=== PATIENT | female | born 1940 | race Caucasian/White ===

== ENCOUNTER → 2021-06-23 09:50 | Outpatient (POV) | payer MEDICARE, SELFPAY ==
[2021-06-23 10:15] VITALS: BP 121/86; PULSE 88; RESP 18; O2SAT 95; BMI 28.0
--- NOTE | 2021-06-23 12:21 | HMH.PMCON ---
Assessment and Plan (1) Degenerative joint disease (DJD) of lumbar spine Status: Chronic Category: Medical Code(s): M47.816 - Spondylosis without myelopathy or radiculopathy, lumbar region (2) Lumbar radiculopathy Status: Chronic Category: Medical Code(s): M54.16 - Radiculopathy, lumbar region (3) Spinal stenosis Status: Chronic Category: Medical Code(s): M48.00 - Spinal stenosis, site unspecified (4) Neurogenic claudication Status: Chronic Category: Medical Code(s): M48.062 - Spinal stenosis, lumbar region with neurogenic claudication - Assessment and plan all Dx Assessment and Plan for all problems:: Patient did undergo updated imaging. She does have significant spinal stenosis per her report. Patient is exhibiting neurogenic claudication type symptoms. Plan per Dr. Fried is for the patient to try injective therapy. If she does not get relief we did suggest the patient proceed with an extension of fusion if specific level can be addressed otherwise the patient would need to continue with pain management treatment. Today, the patient and I did discuss undergoing a lumbar epidural steroid injection at L4-L5 area. Per MRI report?L4-L5 area broad base disc bulge/protrusion with severe right and moderate left foraminal stenosis. Patient would like to proceed. She is on Plavix therapy prescribed by Dr. Han. We will seek approval to hold her anticoagulation therapy for the injection. If the patient does not get significant relief, she and I did discuss possible implanted devices as an option for long-term treatment. Patient is unsure that she wants to proceed with another neurosurgical procedure. These options may be a great option for her. She was given educational information for both the intrathecal pump and the spinal cord stimulator. We will follow-up with the patient after her injection for reevaluation of symptoms. Again, she will need to hold her Plavix therapy prior to the injection. Patient does understand this. Risks and benefits of the procedure have been explained to the patient. Patient would like to proceed with the procedure. Possible side effects of corticosteroids have been discussed with the patient. Patient has been instructed to contact the clinic with any concerns before the next appointment. Dr. Vasquez has reviewed this note and agrees with this plan of care. This note was dictated using voice recognition software and make contain errors or omissions. HPI - Data of Consult Patient: new to practice Consult date: 06/23/21 Requesting Physician: Negra Nelson APRN Primary Care Provider: Referral Provider, MD - Consult Narrative Reason for consult: Chronic low back pain History of present illness: Ms. Parish is a 81 year old female who presents today for consultation for chronic low back pain. The patient was referred to us by Dr. Fried. Patient reports that she has had low back pain and right hip pain for greater than 4 years. She did undergo surgery with Dr. Fried approximately 4 years ago. The patient initially got relief of her low back pain and right hip pain, however, over the last 9 months, her pain has returned. She says that the pain is radiating into her right leg and right ankle. She denies any numbness or tingling. She denies saddle anesthesia or changes in bowel or bladder habit. She says that she does improve somewhat with sitting, however, does have to reposition often and does have have worse pain when she is standing. She says her pain is significant when she is doing things such as washing dishes and making her bed. She also says that turning and twisting worsen her pain as well. The pain is significant and limits her daily life. She has tried physical therapy for greater than 6 weeks and continues with home stretching. Patient is unable to take anti-inflammatories due to Plavix therapy. Her Plavix is prescribed by Dr. Han. She takes Plavix for history of a
== END ==
PROVIDERS: Visit Provider Clinical Nurse Specialist Family Health
DX: M47.896 Other spondylosis, lumbar region (principal); M54.16 Radiculopathy, lumbar region; M48.062 Spinal stenosis, lumbar region with neurogenic claudication
CPT/HCPCS: 99202; G0463

== ENCOUNTER 2021-07-08 11:34 | Day surgery (SDC) | payer MEDICARE, SELFPAY ==
[2021-07-08 12:04] VITALS: BP 147/69; PULSE 77; RESP 18; TEMP 35.9; O2SAT 98; BMI 28.0
[2021-07-08 12:20] VITALS: BP 172/70; PULSE 76; RESP 18; O2SAT 98
[2021-07-08 12:21] VITALS: BP 143/71; PULSE 81; RESP 18; O2SAT 97
[2021-07-08 12:25] VITALS: BP 155/92; PULSE 80; RESP 18; O2SAT 97
--- NOTE | 2021-07-08 12:43 | HMH.PMPROC ---
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 Ramsay. She does have hardware in place. He referred her here for epidural steroid injections as she is having some increasing back pain with some radiation into her hips and legs. She has been off of her Plavix for 7 days. Procedure Details:: Informed consent was obtained and the risk and benefits of the procedure was explained to the patient. The patient was taken to the procedure room. The patient was placed prone on the procedure table. The patient was prepped and draped in sterile fashion. C-arm fluoroscopy was used to view the lumbar spine. Skin and subcutaneous tissues were anesthetized using lidocaine. I placed an 18-gauge epidural needle and advanced into the L4-L5 interspace using fluoroscopic guidance and [id number] to air. After confirmation of needle placement in the epidural space with dye I injected 2 mL of lidocaine 1.5% with Depo-Medrol 80 mg. Patient tolerated the procedure well with no complications. Plan and Disposition:: We will follow-up with her in 2 weeks. Will reevaluate her symptoms at time
== END 2021-07-08 12:20 | disposition home or self-care (01) ==
LOC: SC.PAINP 11:35
PROVIDERS: PCP Family Medicine; Visit Provider Anesthesiology
DX: M54.16 Radiculopathy, lumbar region (principal); M96.1 Postlaminectomy syndrome, not elsewhere classified; I10 Essential (primary) hypertension; M19.90 Unspecified osteoarthritis, unspecified site; F41.9 Anxiety disorder, unspecified; Z72.0 Tobacco use; E78.5 Hyperlipidemia, unspecified; J44.9 Chronic obstructive pulmonary disease, unspecified; Z85.828 Personal history of other malignant neoplasm of skin; Z85.118 Personal history of other malignant neoplasm of bronchus and lung; Z79.899 Other long term (current) drug therapy
CPT/HCPCS: 62323; J1040; Q9966

== ENCOUNTER → 2021-08-02 10:25 | Outpatient (POV) | payer MEDICARE, SELFPAY ==
[2021-08-02 10:49] VITALS: BP 133/56; PULSE 81; RESP 18; O2SAT 96; BMI 25.7
--- NOTE | 2021-08-02 11:16 | HMH.PAINSOAP ---
[facility] Pain Management SOAP Note Subjective:: Patient is a 81-year-old white female who presents today for follow-up. The patient was referred to us by Dr. Fried. She was worked up for possible surgical intervention. He did asked the patient undergo injective therapy before proceeding with any further surgical intervention. She did have a lumbar epidural steroid injection at L4-L5 area. The patient got minimal relief. She is having significant pain in her low back area. She says she is unable to stand, wash dishes, or walk without having significant pain. She says upon sitting, her pain is entirely relieved. She has had a fusion with Dr. Fried in the past. Patient has tried physical therapy for greater than 6 weeks in the past and continues with home stretching. She is also tried oral medications and is currently on Pickerel. She does not have any numbness or tingling in her lower extremities at this time. Pain is primarily in the back area. She does take Plavix therapy. She is not certain she wants to proceed with surgical intervention with Dr. Fried at this point. She rates her pain an 8 out of 10. Pickerel is not relieving the patient's pain. This is prescribed by Dr. Han. She does have weakness in her bilateral lower extremities. She does report to have great relief with elevation of legs. Review of Systems General: No recent weight changes, no fever, no sleep disturbances Respiratory: No cough, no shortness of air, no recurring pulmonary infections Cardiovascular/peripheral vascular: No chest pain, no palpitations, no edema, no shortness of breath Gastrointestinal: No new onset incontinence, normal bowel movements reported Genitourinary: No new onset incontinence Musculoskeletal: Low back pain worse with standing walking and with housework Psychiatric: [Normal mood/affect] Neurological: Weakness bilateral lower extremities Objective:: Physical exam General: Alert and oriented x3, no acute distress, pleasant and cooperative, [on room air] Lungs: Respirations even and unlabored, symmetrical chest expansion Eyes: PERRL Musculoskeletal: Flexion and extension of lumbar [spine] somewhat guarded secondary to pain, strength in upper and lower extremities [5/5], [antalgic gait noted] Neurological: Speech clear, [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 Fried. She is trying oral medication management with no relief. She is unable to take anti-inflammatories due to Plavix therapy. The patient has injective therapy and did not get any relief. She is rating her pain an 8 out of 10 today. Given her symptoms we did discuss proceeding with psychological evaluation for possible intrathecal therapy versus spinal cord stimulation. She would like to proceed. We will order the patient Flexeril 5 mg 1 tablet p.o. 3 times daily to see if this does relieve some of the spasms that she is having in her low back area. She says Pickerel was not giving her any significant relief?prescribed by Dr. Han. We will see her back after the psychological evaluation. She was given educational information regarding spinal cord stimulation and intrathecal therapy today. We will see the patient back in the clinic after her evaluation to discuss further plan of care. Patient has been instructed to contact the clinic with any concerns before the next appointment. Dr. Vasquez has reviewed this note and agrees with this plan of care. This note was dictated using voice recognition software and make contain errors or omissions. [facility] History I have reviewed the patient's past medical history: Yes Medical History: Reports:: Anxiety, Cancer (skin and lung), Hyperlipidemia, Hypertension Denies:: Diabetes Mellitus Type 1, Diabetes Mellitus Type 2, MRSA, Seizures *Have you ever received a pneumonia vaccine?: Yes *Have y
== END ==
PROVIDERS: Visit Provider Clinical Nurse Specialist Family Health
DX: M51.16 Intervertebral disc disorders with radiculopathy, lumbar region (principal)
CPT/HCPCS: 99212; G0463

== ENCOUNTER → 2021-08-18 13:58 | Outpatient (CLI) | payer MEDICARE, SELFPAY ==
--- NOTE | 2021-08-18 13:58 | CT_ITS ---
PROCEDURE: CT ABDOMEN PELVIS WO CON CLINICAL INDICATION: abd pain History of lung cancer COMPARISON: No exams were available for comparison TECHNIQUE: Axial images obtained with sagittal and coronal reformats. All CT scans at the facility use one or more dose reduction, viz: automated exposure control, ma/kV adjustment per patient size (including targeted exams where dose is matched to indication, i.e. head), or iterative reconstruction technique. FINDINGS: LOWER THORAX: See chest CT report of the same day ABDOMEN & PELVIS: The liver, spleen, and pancreas have unremarkable unenhanced appearance. The gallbladder is distended. The left adrenal gland is slightly enlarged possibly due to adenomatous involvement with a density less than 10 Hounsfield units. The right adrenal gland has an unremarkable appearance. There are few small periportal nodes. 6 x 4 cm cyst is present in the upper pole of the right kidney. Small fatty area less than 1 cm noted in the upper pole of the left kidney and may be due to small angio myelolipoma or fatty invagination in the scar. Benign-appearing. No renal or ureteral calculi. No hydronephrosis. There is a small hiatal hernia. There is thickening of the wall the stomach in the cardia and upper body but could be due to nondistention. No evidence of appendicitis. There is colonic diverticulosis. No evidence of diverticulitis. No intestinal obstruction or free air. Prior hysterectomy. A pessary device is present. There are postsurgical changes of the lumbar spine with inter pedicular screws at L2, L3, L4, and L5. Chronic wedge compression changes are present at L2 with 7 mm retrolisthesis of L2 and fusion of the L2-L3 disc space. Prominent bony hypertrophy is present from the prior fusion. Multilevel degenerative changes in the lumbar spine. There is mild dilatation fusiform in nature involving the lower abdominal aorta at 2.6 by 3 cm. There is also mild dilatation of the proximal common iliacs at 1.7 cm on the right and 1.2 cm on the left. No evidence of acute retroperitoneal hemorrhage. IMPRESSION: No acute abdominal or pelvic findings. No convincing evidence of metastatic disease on this unenhanced exam. Small or subtle lesions may not be demonstrated without contrast enhancement. Numerous nonacute incidental findings as detailed above. Mild fusiform dilatation of the lower abdominal aorta at 2.6 x 3 cm and of the right common iliac artery at 1.7 cm. Colonic diverticulosis. No evidence of diverticulitis. Dictated by: Bridger Bennett MD 08/19/2021 07:24 Bridger Bennett MD in [place] 08/19/2021 07:24
--- NOTE | 2021-08-18 14:03 | CT_ITS ---
PROCEDURE: CT CHEST WO CON CLINICAL INDICATION: hx lung cancer COMPARISON: No exams were available for comparison TECHNIQUE: Axial images obtained with sagittal and coronal reformats. All CT scans at the facility use one or more dose reduction, viz: automated exposure control, ma/kV adjustment per patient size (including targeted exams where dose is matched to indication, i.e. head), or iterative reconstruction technique. FINDINGS: HEART AND MEDIASTINAL STRUCTURES: Thyroid gland is enlarged with some heterogeneous density suggesting multinodular goiter. Mediastinum is shifted to the left. No mediastinal or hilar adenopathy. There is significant coronary artery calcification and there is also aortic valve calcification. Small hiatal hernia noted. LUNGS AND PLEURAL SPACES: COPD changes. There are no previous exams available for comparison. Atelectatic change versus scarring noted in the right middle lobe medially. There is a irregular opacity in the right lung base medially felt to represent scarring. A small area of faint ground-glass attenuation is present in the right lower lobe anteriorly nonspecific. Status post left upper lobectomy with left sided volume loss causing mild mediastinal shift toward the left. There is pleural thickening in the left upper hemithorax anteriorly which may be due to space created by the lobectomy. There is calcified granuloma within the lingula. Small left pleural effusion versus pleural thickening. Scarring is present in the left lung base. There are few small subpleural opacities which are nonspecific. No suspicious nodule is evident. BONY STRUCTURES: Old right 4th rib fracture posteriorly. Degenerative change in the thoracic spine. There is a sclerotic focus in the left humeral head which may be due to a bone island. UPPER ABDOMEN: See abdomen report of the same day ADDITIONAL FINDINGS: No other significant abnormalities. IMPRESSION: 1. Status post left upper lobectomy. No convincing evidence of residual or recurrence at neoplasm. 2. Left-sided pleural thickening in the region of the lobectomy and in the left lower lobe versus small loculated effusions. No previous exams to compare too. 3. COPD with scattered areas of scarring. 4. Coronary artery disease 5. Enlarged thyroid gland with heterogeneous areas of decreased attenuation suggesting multinodular goiter. Dictated by: Bridger Bennett MD 08/19/2021 07:14 Bridger Bennett MD in [facility] 08/19/2021 07:14
--- NOTE | 2021-08-18 14:34 | CA_ITS ---
APPROVED REPORT Senior Sql Server Database Developer: [email or web address] Laterality: Bilateral Indications: amaurosis fugax Risk Factors Hypertension: Hyperlipidemia Smoking Doppler Spectral Velocity Analysis ECA (R) 100.50/17.60 cm/s ECA (L) 121.90/12.80 cm/s dICA (R) 90.00/32.60 cm/s dICA (L) 72.00/27.40 cm/s Yehuda (R) 102.70/33.10 cm/s Yehuda (L) 78.80/29.10 cm/s pICA (R) 171.10/58.80 cm/s pICA (L) 56.50/19.90 cm/s dCCA (R) 47.90/13.30 cm/s dCCA (L) 61.60/23.80 cm/s pCCA (R) 64.60/15.80 cm/s pCCA (L) 69.40/17.10 cm/s Vert (R) 40.30/11.10 cm/s Vert (L) 53.10/17.20 cm/s ICA/CCA 3.57 ICA/CCA 1.28 Findings Duplex evaluation demonstrates stenosis of the right proximal internal carotid artery in the range of 50-69% with PSV =140 cm/sec, EDV <100 cm/sec, and IC/CC Ratio <4.0. Duplex evaluation demonstrates stenosis of the left proximal internal carotid artery 20% with PSV <140 cm/sec, EDV <100 cm/sec, and IC/CC Ratio <4.0. Conclusion uplex evaluation demonstrates stenosis of the right proximal internal carotid artery in the range of 50-69% with PSV =140 cm/sec, EDV <100 cm/sec, and IC/CC Ratio <4.0. Duplex evaluation demonstrates stenosis of the left proximal internal carotid artery 20% with PSV <140 cm/sec, EDV <100 cm/sec, and IC/CC Ratio <4.0. Electronically signed by : Bridger Bennett MD 08/19/2021 15:44:45
== END ==
PROVIDERS: PCP Family Medicine; Visit Provider Family Medicine
DX: R10.9 Unspecified abdominal pain (principal); Z85.118 Personal history of other malignant neoplasm of bronchus and lung; R09.89 Other specified symptoms and signs involving the circulatory and respiratory systems; G45.3 Amaurosis fugax
CPT/HCPCS: 71250; 74176; 93880

== ENCOUNTER → 2021-09-15 11:51 | Outpatient (CLI) | payer MEDICARE, SELFPAY ==
--- NOTE | 2021-09-15 | CA_ITS ---
APPROVED REPORT Exam: Pharmacologic Technologist: Sujatha Johnson, Ht: 5 ft 7 in Wt: 166 lbs BSA: 1.87 m2 HR: 79 bpm BP: 137/73 mmHg Rhythm: NSR Medical History Medical History: HTN, Hyperlipidemia Medications: Omeprazole,,,,, Aspirin,,,,, Metoprolol,,,,, PERCOCET,,,,, Albuterol,,,,, Vit D3,,,,, CloPIdogrel,,,,, LoraTADINE,,,,, Zofran,,,,, AtorvaASTATIN,,,,, CyclobenAPRINE,,,,, SertraliINE,,,,, Cardiac Risk Factors: HTN, Hyperlipidemia, , Smoking Stress Test Details Test: LEXISCAN HR Resting HR: 77 bpm Max Heart Rate (APMHR): 141.243728 bpm Max HR Achieved: 109 bpm Target HR (85% APMHR): 119.182248 bpm % of APMHR: 77.31 Recovery HR: 92 bpm BP Resting BP: 137/73 mmHg Max BP: 146/67 mmHg Recovery BP: 141.0/56.0 mmHg ECG Resting ECG: NSR Clinical Exercise duration: 04:01 min Highest Stage Achieved: Exercise capacity: 1.0 METs Stress ECG Conclusion Pt experinced SOA, malaise, lightheaded. No CP noted. Occasional PAC. No significant ST changes. Unremarkable lexiscan stress. Myoview images reported separately. Test Summary REST . . . . . . . Sitting REST 05:18 . . 77 . 137/ 73 . . Stage 1 01:00 . . 89 . . . . Stage 2 01:00 . . 96 . . . . Stage 3 01:00 . . 94 . 145/ 66 . . Stage 4 01:00 . . 90 . 146/ 67 . . Stage 4 01:01 . . 90 . 146/ 67 . Stop exercise at 04:01 RECOVERY 01:00 . . 92 . . . . RECOVERY 02:00 . . 91 . . . . RECOVERY 03:00 . . 93 . 141/ 56 . . RECOVERY 04:00 . . 91 . 141/ 56 . . RECOVERY 04:58 . . 94 . 132/ 60 . . Electronically signed by : Ramos Echavarria MD 09/15/2021 15:03:28
--- NOTE | 2021-09-15 11:52 | NM_ITS ---
APPROVED REPORT Exam: Nuclear Stress Test Indication: chest pain..short of breath Patient Location: Outpatient Stress Tech: Sujatha CASTELAN Tech:Paradise Clarke RENETTA RT(R)(N) Ht: 5 ft 6 in Wt: 173 lbs Bra Size: 36a HR: 79 bpm BP: 137/73 mmHg BSA: 1.88 m2 BMI: 27.9 History: chest pain..short of breath Procedure: Patient received a 0.4 mg of intravenous Lexiscan, resting heart rate 79 bpm, resting blood pressure 137/73 mmHg, with Lexiscan maximum heart rate achived was 93 bpm which is Less than 85 % of the maximum predicted heart rate and blood pressure was 144/56 mmHg. With Lexiscan, patient denied any complaint of chest pain. pt not able to lay on her belly Electrocardiogram Resting electrocardiogram showed sinus rhythm, with Lexiscan there is less than 1.[address] segment depression noted from the baseline EKG. The EKG portion of the Lexiscan is nondiagnostic. Cardiac Stress and Resting SPECT Images: Cardiac Stress and Resting SPECT images were obtained using technetium 99m Myoview 32.9 mCi stress and 11.0 mCi at rest. Gated SPECT for analysis of segmental wall motion and calculation of the ejection fraction also done. Prone images were not obtained. Cardiac stress and rest SPECT images show uniform myocardial activity without segmental perfusion abnormality, computer derived ejection fraction is 61% with no regional wall motion abnormality, right ventricle is normal size and contractility. Conclusion: 1. The EKG portion of the Lexiscan Myoview is nondiagnostic. 2. No scintigraphic evidence of reversible ischemia seen, computer derived ejection fraction is 61% with no regional wall motion abnormality, right ventricle is normal size and contractility. 3. Normal Lexiscan Myoview study. Electronically signed by : Ramos Echavarria MD 09/15/2021 15:18:58
--- NOTE | 2021-09-15 12:23 | CA_ITS ---
APPROVED REPORT EXAM: Comprehensive 2D, Doppler, and color-flow Echocardiogram Pediatric Critical Care Nurse: Tammy Martines RDCS Ht: 5 ft 6 in Wt: 166lbs BSA: 1.85 BP: 119/59 mmHg Indications: CAD,SOA, 2D Dimensions LVOT 2.03 cm (M/F) 1.5-2.5 LA Volume 55.50 mL LA Volume Index 30.16 mL/m2 (M/F) 16-34 M-Mode Dimensions RVDd 2.35 cm (0.9-2.6) LA Diam 4.19 cm (1.9-4.0) LVDd 4.86 cm (3.5-5.7) Ao Diam 3.47 cm (2.0-3.7) LVDs 2.66 cm (3.5-5.7) IVSd 1.29 cm (0.6-1.1) PWd 1.14 cm (0.6-1.1) EF (Teich) 76.50% FS 45.30% EDV (Teich) 110.70 mL TAPSE 3.05 (<1.7) ESV (Teich) 26.00 mL LV Diastology E Decel Time 263.00 (160-240 msec) E/A Ratio 0.7 MED E' 4.40 (< 7 cm/sec) E'/MED E' Ratio 15.68 (>14) LAT E' 5.00 (<10 cm/sec) E/LAT E' Ratio 13.80 (>14) Aortic Valve LVOT Max 143.00 (70-110 cm/s) LVOT VTI 30.09 cm AoV Peak Americo. 177.00 (50-130 cm/s) AO Peak GR. 12.70 mmHg AO Mean GR. 7.80 (<5 mmHg) AO VTI 40.82 (18-25 cm) DANA (VTI) 2.39 (2.5-4.5 cm2) Mitral Valve MV E Max Americo. 69.00 (40-130 cm/s) MV A Velocity 96.00 (40-130 cm/s) E/A Ratio 0.72 MV Decel. Time 263.00 (160-240 ms) MV PHT 77.00 ms Left Ventricle Left atrium is mildly enlarged, left ventricle is normal size, mild concentric left ventricular hypertrophy, visually estimated ejection fraction 55% with no regional wall motion abnormality, grade 1 diastolic dysfunction seen without tissue Doppler evidence of raise left atrial pressure. Right Ventricle Right atrium and right ventricle is grossly normal size and function. Aortic Valve Aortic valve is thickened and calcified without Doppler evidence of significant aortic stenosis or aortic insufficiency. Mitral Valve Mitral valve grossly normal, there is mild mitral regurgitation. Tricuspid Valve Tricuspid grossly normal, there is mild tricuspid regurgitation, tricuspid regurgitation jet velocity is inadequate for calculation of the right ventricular systolic pressure. Pulmonic Valve Pulmonic valve is poorly visualized. Great Vessels Aortic root is normal size. Inferior vena cava is normal size with normal inspiratory collapse. Pericardium No significant pericardial effusion noted. Conclusion 1. Mildly enlarged left atrium, normal left ventricular size, mild concentric left ventricular hypertrophy, visually estimated ejection fraction 55% with no regional wall motion abnormality, grade 1 diastolic dysfunction seen without tissue Doppler evidence of raise left atrial pressure. 2. Thickened and calcified aortic valve without Doppler evidence of aortic stenosis or aortic insufficiency. 3. Mild mitral and tricuspid regurgitation. 4. No significant pericardial effusion noted. 5. Inferior vena cava is normal size with normal inspiratory collapse. Electronically signed by : Ramos Echavarria MD 09/15/2021 15:00:38
== END ==
PROVIDERS: PCP Family Medicine; Visit Provider Internal Medicine Cardiovascular Disease
DX: I25.10 Atherosclerotic heart disease of native coronary artery without angina pectoris (principal); I77.9 Disorder of arteries and arterioles, unspecified; R06.00 Dyspnea, unspecified; R93.89 Abnormal findings on diagnostic imaging of other specified body structures; Z72.0 Tobacco use; Z85.118 Personal history of other malignant neoplasm of bronchus and lung
CPT/HCPCS: 78452; 93017; 93306; A9502; J2785

== ENCOUNTER 2021-09-20 12:18 | Emergency (ER) | payer MEDICARE, SELFPAY ==
[2021-09-20 12:40] VITALS: BP 149/80; PULSE 98; RESP 24; TEMP 37.7; O2SAT 95; BMI 26.6
--- NOTE | 2021-09-20 12:44 | XR_ITS ---
PROCEDURE: XR CHEST 2V CLINICAL HISTORY: soa COMPARISON: CT CT CHEST WO CON from 08/18/2021 FINDINGS: The cardiomediastinal silhouette and pulmonary vascularity are within normal limits. There is blunting of the left CP angle. Mediastinum is somewhat prominent. old 4th rib fracture. A sclerotic focus nonspecific. The thoracic scoliosis convex left. Postsurgical changes are present at the L3 level with inter pedicular screws noted IMPRESSION: Chronic changes, no acute finding. Dictated by: Bridger Bennett MD 09/20/2021 13:31 Bridger Bennett MD in [place] 09/20/2021 13:31
--- NOTE | 2021-09-20 12:55 | HMH.EDUTC ---
[facility] [place] Disposition Clinical Impression: Bronchitis Disposition: Home, Self-Care Condition on Discharge: Good Instructions: Pneumonia-Adult, Chronic Bronchitis, DI for Chronic Bronchitis, Cefdinir Additional Instructions: Start Cefdnir and Medrol dose pack tomorrow 09/21/21 May start Azithromycin today Use nebulizer treatments as prescribed by your Family Doctor Go straight to ER if any worsening of shortness of breath or trouble breathing Return if needed Follow up with your Family Doctor if no improvement or any worsening of symptoms Prescriptions: methylPREDNISolone [Medrol 4mg tab] 4 mg PO DIRECTED #21 tab Transmission Status: Received by [id number] Cefdinir [Omnicef 300mg Capsule] 300 mg PO BID #20 cap Transmission Status: Received by [id number] Azithromycin [Z-Jesse 250mg Tab] 250 mg PO DIRECTED #6 tab Transmission Status: Received by [id number] Referrals: Joel Han MD [Primary Care Provider] - As needed Time of Disposition: 14:00 Medical Decision Making - Yimi Inquiry Pt receiving controlled substance: No Yimi was queried for this patient: No Vital Signs: 09/20/21 12:40 09/20/21 14:13 Temperature 99.9 F H 99.9 F H Temperature Source Oral Pulse Rate 98 H Pulse Rate [Left] 98 H Respiratory Rate 24 24 Blood Pressure 149/80 H Blood Pressure [Right Arm] 149/80 H Blood Pressure Mean [Right Arm] 103 02 Sat by Pulse Oximetry 95 Oxygen Delivery Method Room Air Orders (Tests/Meds): ED MEDICATIONS Discontinued Medications Generic Name Dose Route Start Last Admin Trade Name Opal PRN Reason Stop Dose Admin Albuterol/Ipratropium 3 ml 09/20/21 13:18 09/20/21 13:37 Ipratropium/Albuterol 3 Ml Neb IH 09/20/21 13:19 3 ml ONCE ONE Administration Ceftriaxone Sodium 1 gm 09/20/21 13:18 09/20/21 13:36 Ceftriaxone 1gm Vial IM 09/20/21 13:19 1 gm ONCE ONE Administration Lidocaine HCl 0 ml 09/20/21 13:18 Lidocaine 1% 5ml Pf Vial IM 09/20/21 13:19 ONCE ONE Lidocaine HCl 2.5 ml 09/20/21 13:19 09/20/21 13:37 Lidocaine 1% 10ml Mdv IM 09/20/21 13:20 2.5 ml ONCE ONE Administration Methylprednisolone Sodium Succinate 125 mg 09/20/21 13:18 09/20/21 13:36 Methylprednisolone Sod Succ 125mg Vial IM 09/20/21 13:19 125 mg ONCE ONE Administration - Radiology Data #1 Image(s): Chest Image Reviewed: Yes I have reviewed radiologist's interpretation IMPRESSION: Chronic changes, no acute finding. Medical Decision Narrative: Discussed with patient and recommended transfer to the ED for further treatment and evaluation and patient declined States that she didnt wnt to go the the ED she wanted some medication and to go home Patient educated on risks even and she still declined [facility] [place] HPI - General Stated complaint: congestion, SOA Time Seen by Provider: 09/20/21 12:56 Mode of Arrival: Ambulatory Source of Information: Patient Limitations: No Limitations Description of Symptoms (Recalled from Triage Doc. by RN): pt c/o congestion, cough and soa. pt states she is extremely worse soa christian when standing or attempting to ambulate. x4 days. HEENT Symptoms (Recalled from RN notes): Yes (congestion) Resp Symptoms (Recalled from RN notes): Yes (cough and soa) Skin Symptoms (Recalled from RN notes): No MS Symptoms (Recalled from RN notes): No Functional Status (Recalled from RN notes): na - History of Present Illness Provider Complaint: Patient states that she gets pneumonia and bronchitis about this time every year and states that for the last 4 days she has been having chest congestion that has continued to get worse States that she is not coughing anything up but sometimes when she gets up and moves around she gets a little winded - Related Data Home Medications Medication Instructions Recorded Confirmed cholecalciferol (vitamin D3) 10 10 mcg PO DAILY 04/15/20 09/20/21 mcg (400 un
[2021-09-20 14:13] VITALS: BP 149/80; PULSE 98; RESP 24; TEMP 37.7
== END 2021-09-20 14:15 | disposition home or self-care (01) ==
PROVIDERS: Emergency Provider Nurse Practitioner; PCP Family Medicine
DX: J20.9 Acute bronchitis, unspecified (principal); E78.5 Hyperlipidemia, unspecified; I10 Essential (primary) hypertension; F41.9 Anxiety disorder, unspecified; F17.210 Nicotine dependence, cigarettes, uncomplicated
CPT/HCPCS: G0463; 71046; 96372; 99202